=== PATIENT | male | born 1955 | race Caucasian/White ===

== ENCOUNTER → 2017-07-07 | Outpatient (CLI) | payer BC ==
[~2017-07-07] MED LIST: ATEN25TA PO; HYDR-3583 PO; LEVO750T24 PO; MULT-974 PO
--- NOTE | 2017-07-07 12:59 | Diagnostic Imaging Report ---
PROCEDURE: MRI lumbar spine. TECHNIQUE: Multiplanar, multisequence MRI of the lumbar spine was performed without contrast. INDICATION: Back pain. This study is compared with 03/13/14. FINDINGS: There is susceptibility artifact suggestive of fusion hardware between the spinous processes of a S1 and S2 level. There is also suggestion of left hemilaminectomy at L5/S1. The alignment of the posterior spinal line is satisfactory. The vertebral body heights are preserved. There is mild disc height loss at L5/S1. The cauda equina and conus medullaris appear grossly unremarkable. T12/L1: There is no disc herniation and no significant facet hypertrophy. No spinal canal or foraminal stenosis. L1/L2: There is a posterior annular tear without significant disc herniation. There is mild facet hypertrophy. No central canal or lateral recess stenosis. No foraminal stenosis. L2/L3: There is a posterior annular tear and diffuse disc bulge. There is mild to moderate facet arthropathy. There is mild to moderate central canal stenosis reducing the AP dimension of the canal to 8.8 mm and mild to moderate lateral recess stenosis bilaterally. The foramina demonstrate no significant stenosis. L3/L4: There is a mild diffuse disc bulge and there is moderate facet hypertrophy. There is mild central canal stenosis reducing the AP dimension of the canal to 9 mm. Mild to moderate lateral recess stenosis is seen bilaterally. The foramina demonstrate mild stenosis on the right and no significant stenosis on the left. L4/L5: There is minimal disc bulge and moderate facet hypertrophy, worse on the right side. No significant central canal stenosis. There is bilateral moderate lateral recess stenosis abutting the descending L5 nerve roots bilaterally. The foramina demonstrate moderate stenosis on the left and mild to moderate stenosis on the right side. L5/S1: There is an asymmetric disc bulge to the left. There is change from prior left hemilaminectomy and suggestion of fusion hardware between the spinous processes and right lamina posteriorly causing susceptibility artifact. There is no central canal or right lateral recess stenosis. The right facet joint demonstrates moderate hypertrophy. The left lateral recess demonstrates mild stenosis. The foramina demonstrate mild stenosis on the right side and moderate stenosis on the left. When compared to 2014, there is slight worsening of the degenerative changes. IMPRESSION: Degenerative changes are seen as described. There is moderate lateral recess stenosis bilaterally at L4/L5 level abutting the descending L5 nerve roots. Other findings are described above at each level. Dictated on workstation # [id number]
== END ==
LOC: RAD 08:18
PROVIDERS: ATTEND Orthopaedic Surgery
DX: M54.5 Low back pain (principal)
CPT/HCPCS: 72148

== ENCOUNTER 2017-12-26 08:43 | Outpatient (RCR) | payer BC | END 2018-03-26 | disposition home or self-care (01) | LOC: CARD 08:43 | PROVIDERS: ATTEND Internal Medicine Interventional Cardiology | DX: I10 Essential (primary) hypertension (principal); I51.7 Cardiomegaly; I27.20 Pulmonary hypertension, unspecified; R00.2 Palpitations | CPT/HCPCS: 93225; 93226 ==

== ENCOUNTER → 2017-12-26 | Outpatient (CLI) | payer BC | LOC: CARD 08:33 | PROVIDERS: ATTEND Internal Medicine Interventional Cardiology | DX: I10 Essential (primary) hypertension (principal); I27.20 Pulmonary hypertension, unspecified; I51.7 Cardiomegaly; R00.2 Palpitations | CPT/HCPCS: 93306 ==

== ENCOUNTER 2018-01-22 08:16 | Outpatient (RCR) | payer BC | END 2018-03-28 | disposition home or self-care (01) | LOC: CARD 08:16 | PROVIDERS: ATTEND Internal Medicine Interventional Cardiology | DX: R00.2 Palpitations (principal) | CPT/HCPCS: 93270 ==

== ENCOUNTER → 2018-10-22 | Outpatient (CLI) | payer BC ==
--- NOTE | 2018-10-22 16:56 | Diagnostic Imaging Report ---
INDICATION: Persistent cough. TIME OF EXAM: 2:42 PM COMPARISON: Correlation is made with prior study from 03/09/2016. FINDINGS: The heart size is normal. The lungs are clear. No infiltrates are detected. The pulmonary vascularity is normal. No effusion or pneumothorax is seen. There are postop changes in the lower cervical spine. IMPRESSION: No acute cardiopulmonary process is detected. Dictated by: Dictated on workstation # [id number]
== END ==
LOC: RAD 14:27
PROVIDERS: ATTEND Family Medicine
DX: R05 Cough (principal); Z98.890 Other specified postprocedural states
CPT/HCPCS: 71046

== ENCOUNTER 2021-10-24 08:03 | Emergency (ER) | payer BC ==
[~2021-10-24] VITALS: Ht 185 cm; Wt 117.9 kg
[2021-10-24 08:45] LABS: BASOPHILS % (AUTO) 1 % (0-10); EOSINOPHILS # (AUTO) 0.1 10^3/uL (0.0-0.3); EOSINOPHILS % (AUTO) 1 % (0-10); HEMATOCRIT 49 % (40-54); HEMOGLOBIN 17.7 g/dL (13.3-17.7); LYMPHOCYTES # (AUTO) 0.8 10^3/uL (1.0-4.0); LYMPHOCYTES % (AUTO) 20 % (12-44); MEAN CORPUSCULAR HEMOGLOBIN 31 pg (25-34); MEAN CORPUSCULAR HGB CONC 36 g/dL (32-36); MEAN CORPUSCULAR VOLUME 86 fL (80-99); MEAN PLATELET VOLUME 9.9 fL (9.0-12.2); MONOCYTES # (AUTO) 0.5 10^3/uL (0.0-1.0); MONOCYTES % (AUTO) 12 % (0-12); NEUTROPHILS # (AUTO) 2.7 10^3/uL (1.8-7.8); NEUTROPHILS % (AUTO) 64 % (42-75); PLATELET COUNT 201 10^3/uL (130-400); WHITE BLOOD COUNT 4.2 10^3/uL (4.3-11.0)
[2021-10-24 08:46] LABS: ALBUMIN 4.2 GM/DL (3.2-4.5)
[2021-10-24 08:47] LABS: CALCIUM 9.1 MG/DL (8.5-10.1)
[2021-10-24 08:48] LABS: TOTAL PROTEIN 6.9 GM/DL (6.4-8.2)
[2021-10-24 08:50] LABS: BILIRUBIN,TOTAL 0.6 MG/DL (0.1-1.0)
[2021-10-24 08:52] LABS: CREATININE SERUM 0.84 MG/DL (0.60-1.30)
[2021-10-24] MEDS ORDERED: RT-ALBUTEROL HFA 8.5 GM INHALER IH STA (08:54)
[2021-10-24] MEDS ORDERED: BENZONATATE 100 MG (TESSALON) CAPSULE PO ONE (09:15)
--- NOTE | 2021-10-24 09:20 | Diagnostic Imaging Report ---
EXAMINATION: Chest 1 view HISTORY: Cough COMPARISON: 07/17/2009. FINDINGS: The lungs are clear without edema or pneumonia. No pleural effusion or pneumothorax. Heart size is normal. A Loop recorder projects over the chest. IMPRESSION: 1. Clear lungs. Dictated by: Dictated on workstation # [id number]
[2021-10-24] MEDS ORDERED: GUAI400T86 PO (09:28)
[2021-10-24] MEDS ORDERED: OSLT75C PO (09:28)
[2021-10-24] MEDS ORDERED: BENZ100C18 PO (09:28)
--- NOTE | 2021-10-24 09:31 | ED General ---
General Chief Complaint: Cough/Cold/Flu Symptoms Stated Complaint: SOB/COUGH Nursing Triage Note: ARRIVED VIA AMB WITH COMPLAINTS OF ONGOING COUGH. HAS BEEN ON A ZPACK, STEROID, AND INHALER. AT HOME COVID TEST NEG. Source of Information: Patient, Old Records Exam Limitations: No Limitations History of Present Illness Date Seen by Provider: Oct 24, 2021 Time Seen by Provider: 08:33 Initial Comments This 66-year-old gentleman presents to the emergency room by private vehicle with complaints of persistent cough, shortness of breath, wheezing, and difficulty sleeping for the past week. He was seen early in the week by Dr. Almonte and was prescribed a azithromycin and steroids. He was seen again on and was prescribed a Stiolto inhaler. Chest x-ray was performed and was clear. He did not receive any influenza or COVID-19 testing. He is not vaccinated for COVID-19 or influenza. He has had a very severe reaction to influenza vaccine in the past and therefore does not receive vaccines now.. Vital signs are stable. Allergies and Home Medications Allergies Coded Allergies: Armida Known Allergies (Verified Allergy, Unknown, 05/19/06) Patient Home Medication List Home Medication List Reviewed: Yes Atenolol (Tenormin 25 Mg) 25 Mg Tablet, 25 MG PO DAILY, (Reported) Entered as Reported by: JOANNE STEINER on 04/01/13 0747 Benzonatate (Tessalon Perles) 100 Mg Capsule, 200 MG PO TID PRN for COUGH Prescribed by: ZO MOULTON on 10/24/21 09 Guaifenesin (Guaifenesin) 400 Mg Tablet, 400 MG PO Q4H PRN for CONGESTION Prescribed by: ZO MOULTON on 10/24/21 0928 Hydrocodone Bit/Acetaminophen (Lortab 5 Mg) 1 Tab Tab, 1-2 EA PO Q 4 - 6 HR PRN, (Reported) Entered as Reported by: SONA NAM on 04/01/13 1708 Levofloxacin (Levaquin Po) 750 Mg Tablet, 750 MG PO DAILY Prescribed by: ALEXSANDRA LAYNE on 04/04/13 1126 Multivitamin (Multi Vitamin Daily) 1 Each Tablet, 1 EACH PO DAILY, (Reported) Entered as Reported by: JOANNE STEINER on 04/01/13 0747 Oseltamivir Phosphate (Tamiflu) 75 Mg Cap, 75 MG PO BID Prescribed by: ZO MOULTON on 10/24/21 0928 Review of Systems Review of Systems Constitutional: see HPI, malaise, weakness EENTM: no symptoms reported Respiratory: see HPI Cardiovascular: no symptoms reported Gastrointestinal: no symptoms reported Genitourinary: no symptoms reported Musculoskeletal: muscle pain Skin: no symptoms reported Psychiatric/Neurological: No Symptoms Reported Hematologic/Lymphatic: No Symptoms Reported Immunological/Allergic: no symptoms reported Past Jsdnior-Mzenbt-Awffwl Hx Patient Social History Tobacco Use?: No Seasonal Allergies Seasonal Allergies: No Past Medical History Surgeries: Yes (Hydrocele repair) Abdominal (Hernia repair, EGD), Appendectomy, Cardiac (loop recorder), Joint Replacement (Bilateral knee replacement), Orthopedic (Knee arthroscopy, neck, back), Renal (Renal stone), Thyroidectomy (Thyroid nodule biopsy) Respiratory: No Cardiac: Yes Coronary Artery Disease (Mild CAD with no obstruction by cath 2008), Hyper tension, Palpitations Genitourinary: Yes Kidney Stones Gastrointestinal: No Family Medical History No Pertinent Family Hx Physical Exam Vital Signs Vital Signs - First Documented 10/24/21 08:10 Temp 38.1 Pulse 85 Resp 16 B/P (MAP) 166/92 (116) Pulse Ox 94 O2 Delivery Room Air Capillary Refill : Less Than 3 Seconds Height, Weight, BMI Height: 6'1.00" Weight: 247lbs. oz. 112.144559li; 34.00 BMI Method:Stated General Appearance: WD/WN, Mild Distress HEENT: PERRL/EOMI, Other (Oropharynx somewhat dry) Neck: Normal Inspection; No JVD Respiratory: Lungs Clear, Normal Breath Sounds, No Accessory Muscle Use, No Respiratory Distress, Other (Mild tachypnea) Cardiovascular: Regular Rate, Rhythm, No Edema, No Murmur Gastrointestinal: Normal Bowel Sounds, Non Tender, Soft Extremity: Normal Inspection, No Pedal Edema Skin: Normal Color, Warm/Dry Progress/Results/Core Measures Suspected Sepsis SIRS Temperature: Pulse: 85 Respiratory Rate: 16 Laboratory Tests 10/24/21 08:25: White Blood Count 4.2L Blood Pressure 166 /92 Mean: 116 Laboratory Tests 10/24/21 08:25: Creatinine 0.84, Platelet Count 201, Total Bilirubin 0.6 Results/Orders Lab Results Laboratory Tests Test 10/24/21 08:25 Range/Units White Blood Count 4.2 L 4.3-11.0 10^3/uL Red Blood Count 5.67 H 4.30-5.52 10^6/uL Hemoglobin 17.7 13.3-17.7 g/dL Hematocrit 49 40-54 % Mean Corpuscular Volume 86 80-99 fL Mean Corpuscular Hemoglobin 31 25-34 pg Mean Corpuscular Hemoglobin Concent 36 32-36 g/dL Red Cell Distribution Width 12.3 10.0-14.5 % Platelet Count 201 130-400 10^3/uL Mean Platelet Volume 9.9 9.0-12.2 fL Immature Granulocyte % (Auto) 1 % Neutrophils (%) (Auto) 64 42-75 % Lymphocytes (%) (Auto) 20 12-44 % Monocytes (%) (Auto) 12 0-12 % Eosinophils (%) (Auto) 1 0-10 % Basophils (%) (Auto) 1 0-10 % Neutrophils # (Auto) 2.7 1.8-7.8 10^3/uL Lymphocytes # (Auto) 0.8 L 1.0-4.0 10^3/uL Monocytes # (Auto) 0.5 0.0-1.0 10^3/uL Eosinophils # (Auto) 0.1 0.0-0.3 10^3/uL Basophils # (Auto) 0.0 0.0-0.1 10^3/uL Immature Granulocyte # (Auto) 0.1 0.0-0.1 10^3/uL Sodium Level 137 135-145 MMOL/L Potassium Level 4.0 3.6-5.0 MMOL/L Chloride Level 103 98-107 MMOL/L Carbon Dioxide Level 20 L 21-32 MMOL/L Anion Gap 14 5-14 MMOL/L Blood Urea Nitrogen 13 7-18 MG/DL Creatinine 0.84 0.60-1.30 MG/DL Estimat Glomerular Filtration Rate 97 BUN/Creatinine Ratio 15 Glucose Level 107 H 70-105 MG/DL Calcium Level 9.1 8.5-10.1 MG/DL Corrected Calcium 8.9 8.5-10.1 MG/DL Total Bilirubin 0.6 0.1-1.0 MG/DL Aspartate Amino Transf (AST/SGOT) 37 H 5-34 U/L Alanine Aminotransferase (ALT/SGPT) 67 H 0-55 U/L Alkaline Phosphatase 65 40-136 U/L C-Reactive Protein High Sensitivity 0.39 0.00-0.50 MG/DL Total Protein 6.9 6.4-8.2 GM/DL Albumin 4.2 3.2-4.5 GM/DL Procalcitonin 0.07 <0.10 NG/ML Influenza Type A (RT-PCR) Detected H Not Detecte Influenza Type B (RT-PCR) Not Detected Not Detecte SARS-CoV-2 RNA (RT-PCR) Not Detected Not Detecte My Orders Orders - ZO PARK MD Covid 19 Inhouse Test (10/24/21 08:33) Influenza A And B By Pcr (10/24/21 08:33) Chest 1 View, Ap/Pa Only (10/24/21 08:33) Cbc With Automated Diff (10/24/21 08:35) Comprehensive Metabolic Panel (10/24/21 08:35) Procalcitonin (Pct) (10/24/21 08:35) Hs C Reactive Protein (10/24/21 08:35) Ed Iv/Invasive Line Start (10/24/21 08:35) Albuterol Inhaler (Albuterol) (10/24/21 08:54) Benzonatate Capsule (Tessalon Perles) (10/24/21 09:15) Medications Given in ED Current Medications Medications Dose Ordered Sig/[place] Route Start Time Stop Time Status Last Admin Dose Admin Benzonatate 200 mg ONCE ONCE PO 10/24/21 09:15 10/24/21 09:16 DC 10/24/21 09:21 200 MG Vital Signs/I&O 10/24/21 10/24/21 08:10 10:05 Temp 38.1 Pulse 85 93 Resp 16 16 B/P (MAP) 166/92 (116) 124/77 Pulse Ox 94 93 O2 Delivery Room Air Room Air Capillary Refill : Less Than 3 Seconds Blood Pressure Mean: 116 Progress Note : Progress Note Patient received an albuterol inhaler. He stated this worked a little bit better than the Stiolto. He tested positive for influenza A. We discussed Silke flu for his persistent intense symptoms. He is aware it is less likely to be effective outside of the initial 48 hours. He is desperate to try anything to help with his symptoms and requests a prescription. He was also given prescription for Tessalon Perles. Diagnostic Imaging Diagonstic Imaging: Xray Plain Films/CT/US/NM/MRI: chest Comments NAME: CECI WILSON [facility] REC#: [id number] PT STATUS: REG ER : 1955 PHYSICIAN: ZO PARK MD ADMIT DATE: 10/24/21/ER Signed Date of Exam:10/24/21 CHEST 1 VIEW, AP/PA ONLY EXAMINATION: Chest 1 view HISTORY: Cough COMPARISON: 07/17/2009. FINDINGS: The lungs are clear without edema or pneumonia. No pleural effusion or pneumothorax. Heart size is normal. A Loop recorder projects over the chest. IMPRESSION: 1. Clear lungs. Dictated by: Dictated on workstation # [id number] Dict: 10/24/21917 Trans: 10/24/21928 [facility] [id number] Interpreted by: FAHAD CHESTER MD Electronically signed by: FAHAD CHESTER MD 10/24/21928 Departure Impression Primary Impression: Influenza A Additional Impression: Wheezing Disposition: 01 HOME, SELF-CARE Condition: Stable Departure-Patient Inst. Decision time for Depature: 09:26 Referrals: LEON ALMONTE MD (PCP/Family) Primary Care Physician Patient Instructions: Flu, Adult ED Add. Discharge Instructions: Drink plenty of clear liquids to stay well-hydrated. You may take ibuprofen up to 600 mg every 6 hours and/or Tylenol (acetaminophen) up to 1000 mg every 6 hours as needed for fever or discomfort. Complete any remaining antibiotic or steroid doses that you received from Dr. Almonte. You may continue using the Stiolto inhaler provided by Dr. Almonte if you justin se. It is a long-acting medication and you may not notice immediate relief when you take it. For more immediate relief of shortness of breath or wheezing, you may use the albuterol inhaler provided in the ER. You may use up to 4 puffs in a 4-hour period of time. If you are requiring more than 4 puffs in 4 hours, please return to the emergency room. This medication may make you feel jittery or make your heart accelerate a little. Use Tessalon Perles as prescribed for cough suppression. Use guaifenesin as prescribed for chest congestion. Complete the entire 10 doses of Tamiflu. Tamiflu is less effective if not started within the first 48 hours but may reduce your symptoms some. Call with questions or concerns. Return to the ER if you have worsening symptoms. All discharge instructions reviewed with patient and/or family. Voiced understanding. Scripts Guaifenesin (Guaifenesin) 400 Mg Tablet 400 MG PO Q4H PRN for CONGESTION, #20 TAB Prov: ZO PARK MD 10/24/21 Benzonatate (TESSALON PERLES) 100 Mg Capsule 200 MG PO TID PRN for COUGH, #20 CAP Prov: ZO PARK MD 10/24/21 Oseltamivir Phosphate (Tamiflu) 75 Mg Cap 75 MG PO BID, #10 CAP Prov: ZO PARK MD 10/24/21 Copy Copies To 1: LEON ALMONTE MD, JOSHUA T MD Oct 24, 2021 09:31
[2021-10-24 10:05] VITALS: BP 124/77
== END 2021-10-24 10:05 | disposition home or self-care (01) ==
LOC: EDUNIT# 08:03 → ER 08:05
DX: J10.1 Influenza due to other identified influenza virus with other respiratory manifestations (principal); R06.2 Wheezing; I10 Essential (primary) hypertension; Z20.822 Contact with and (suspected) exposure to COVID-19
CPT/HCPCS: 36415; 71045; 80053; 84145; 85025; 86141; 87636

== ENCOUNTER 2022-12-21 06:39 | Outpatient (CLI) | payer MEDICARE, OTHER ==
[~2022-12-21] VITALS: Ht 185.4 cm; Wt 121.7 kg
[~2022-12-21 06:39] MED LIST changes: +BENZ100C18 PO; +GUAI400T86 PO; +OSLT75C PO
[2022-12-21] MEDS ORDERED: BEMP1TAB PO (09:31)
[2022-12-21] MEDS ORDERED: TRIA1TAB3 PO (09:31)
[2022-12-21] MEDS ORDERED: MTP100TCR PO (09:31)
[2022-12-21] MEDS ORDERED: MULT-1136 PO (09:31)
[2022-12-21] MEDS ORDERED: FLEC50TA PO (09:31)
[2022-12-21] MEDS ORDERED: OMEP20TA56 PO (11:56)
[2022-12-21] MEDS ORDERED: MECO10005 PO (11:56)
[2022-12-21] MEDS ORDERED: [UNRECOGNIZED DRUG - CODE] PO (11:56)
[2022-12-21] MEDS ORDERED: LACT1CAP62 PO (11:56)
[2022-12-21] MEDS ORDERED: ASPI-999 PO (11:56)
[2022-12-21] MEDS ORDERED: ERGO2000 PO (11:56)
[2022-12-21] MEDS ORDERED: OMEG10005 PO (11:56)
== END 2022-12-21 09:32 | disposition home or self-care (01) ==
LOC: PREOP 06:39
PROVIDERS: ATTEND Surgery
DX: Z01.818 Encounter for other preprocedural examination (principal)

== ENCOUNTER 2022-12-29 10:51 | Day surgery (SDC) | payer MEDICARE, OTHER ==
[~2022-12-29] VITALS: Ht 185.4 cm; Wt 121.7 kg
[~2022-12-29 10:51] MED LIST changes: +ASPI-999 PO; +BEMP1TAB PO; +ERGO2000 PO; +FLEC50TA PO; +LACT1CAP62 PO; +MECO10005 PO; +MTP100TCR PO; +MULT-1136 PO; +OMEG10005 PO; +OMEP20TA56 PO; +TRIA1TAB3 PO; +[UNRECOGNIZED DRUG - CODE] PO
[2022-12-29] MEDS ORDERED: LACTATED RINGERS 1,000 ML IV STA (11:14)
[2022-12-29] MEDS ORDERED: HURRICAINE EXT TUBE (BENZOCAINE) XX PRN (11:15)
[2022-12-29 11:21] VITALS: BP 145/86
--- NOTE | 2022-12-29 11:24 | Progress Note-Pre Operative ---
Pre-Operative Progress Note Date H&P Reviewed: Dec 29, 2022 Time H&P Reviewed: 11:24 History & Physical: H&P Reviewed, Patient Examed, No changes noted Pre-Operative Diagnosis: FLORIN Orozco DO Dec 29, 2022 11:24
[2022-12-29] MEDS ORDERED: PROPOFOL INJECTION 50 ML IV ONE (12:32)
--- NOTE | 2022-12-29 12:32 | Discharge Inst-Simple/Standard ---
Discharge Inst-Standard Reconcile Patient Problems Problems Reviewed?: Yes Patient Instructions/Follow Up Plan of Care/Instructions/FU: F/u with Dr. Granda in 2 weeks Activity as Tolerated: Yes Discharge Diet: No Restrictions, Regular Diet (high fiber) FLORIN GRANDA DO Dec 29, 2022 12:32
--- NOTE | 2022-12-29 12:34 | Progress Note-Post Operative ---
Post-Operative Progess Note Surgeon (s)/Veterinarian Assistant (s) Surgeon FLORIN BLAIR DO Veterinarian Assistant: n/a Pre-Operative Diagnosis Melena Post-Operative Diagnosis Internal hemorrhoids, Diverticulosis, ascending colon polyp, small hiatal hernia Procedure & Operative Findings Date of Procedure 12/29/22 Procedure Performed/Findings EGD with biopsies, colonoscopy with hot biopsy polypectomy x1 Anesthesia Type per booth cleaner Estimated Blood Loss Estimated blood loss (mL): none Specimens/Packing Specimens Removed GE junction and antrum biopsies, colon polyp FLORIN BLAIR DO Dec 29, 2022 12:34
[2022-12-29 12:35] VITALS: BP 121/62
--- NOTE | 2022-12-29 12:35 | Anesthesia-General Post-Op ---
MAC Patient Condition Mental Status/LOC: Same as Preop Cardiovascular: Satisfactory Nausea/Vomiting: Absent Respiratory: Satisfactory Pain: Controlled Complications: Absent Post Op Complications Complications None Follow Up Care/Instructions Patient Instructions None needed. Anesthesiology Discharge Order Discharge Order Patient is doing well, no complaints, stable vital signs, no apparent adverse anesthesia problems. No complications reported per nursing. ZENIA IRAHETA CRNA Dec 29, 2022 12:35
[2022-12-29 12:40] VITALS: BP 121/72
[2022-12-29 12:58] VITALS: BP 121/72
--- NOTE | 2022-12-29 22:45 | OPERATIVE REPORT ---
DATE OF SERVICE: 12/29/2022 PREOPERATIVE DIAGNOSIS: Melena. POSTOPERATIVE DIAGNOSES: Internal hemorrhoids, diverticulosis, ascending colon polyps, small hiatal hernia. INDICATIONS: The patient is a 67-year-old male who having some melena. He understands risks and benefits of procedure and wishes to proceed. Consent was signed in the chart. DESCRIPTION OF PROCEDURE: The patient was taken to the endoscopy suite and placed in the left lateral recumbent position. Timeout was performed. Scope was inserted in the mouth, down the esophagus, stomach, into the duodenum without difficulty. No polyps, masses or ulcerations within the duodenum. Scope was slowly retracted back into stomach where it was further insufflated. No polyps, masses or ulcerations. Biopsy of the antrum was obtained. Scope was retroflexed noting a very small hiatal hernia, no other pathology. Scope was returned to its normal position, slowly withdrawn until distal esophagus. Biopsy of GE junction was obtained. Scope was then slowly retracted back until completely removed, noting no other pathology. Digital rectal exam was performed noting internal hemorrhoids, no other pathology. Scope was inserted in the rectum and advanced all the way to the cecum with minimal difficulty. Prep was adequate. Scope was slowly retracted back. No polyps, masses or ulcerations in the cecum. In the ascending colon, a small polyp was present, which hot biopsy polypectomy was performed. Scope was then continuously retracted back. No polyps, masses or ulcerations in the remainder of the ascending, transverse, descending and sigmoid colon. I noted some diverticulosis throughout the left colon. Once in the rectum, scope was retroflexed noting no other pathology except for the internal hemorrhoids. Scope was returned to its normal position, slowly withdrawn until completely removed. The patient tolerated the procedure well without complications, taken to recovery room in stable condition. RECOMMENDATIONS: The patient will continue on current management. We would consider a hemorrhoidectomy. He will need repeat colonoscopy in 5 years. Any changes before that, be seen at that time. The patient will follow up in the clinic in 2 weeks. Job ID: [id number] DocumentID: [id number] Dictated Date: 12/29/2022 15:16:19 Nutritionists Date: 12/29/2022 22:43:00 Dictated By: FLORIN BLAIR DO
== END 2022-12-29 13:05 | disposition home or self-care (01) ==
LOC: ENDO 10:51
PROVIDERS: ATTEND Surgery
DX: D12.2 Benign neoplasm of ascending colon (principal); K31.89 Other diseases of stomach and duodenum; K44.9 Diaphragmatic hernia without obstruction or gangrene; K64.8 Other hemorrhoids; K57.31 Diverticulosis of large intestine without perforation or abscess with bleeding; E66.9 Obesity, unspecified; Z68.35 Body mass index [BMI] 35.0-35.9, adult; Z87.891 Personal history of nicotine dependence; Z28.310 Unvaccinated for COVID-19